=== PATIENT | female | born 1965 | race Native Hawaiian/Other Pacific Islander ===

== ENCOUNTER 2018-10-01 19:08 | Emergency (ER) | payer SELFPAY ==
[2018-10-01 19:21] VITALS: RESP 18; O2SAT 99
[2018-10-01] MEDS ORDERED: Tdap Vaccine 0.5 ml Vial (10-64 yrs) IM ONE ×2 (19:30→19:39)
[2018-10-01] MEDS ORDERED: Bacitracin 500 Units/gm Oint Foilpak UD ONE (19:30)
--- NOTE | 2018-10-01 19:51 | ED PDOC ---
Upper Extremity Pain/Injury Time Seen by Provider: 10/01/18 19:17 Chief Complaint (Nursing): Upper Extremity Problem/Injury History Per: Patient Additional Complaint(s): Pt. states yesterday at approximately 1900 yesterday she accidentally cut her L thumb using knife. Pt. states she's had a throbbing pain to the area since. Denies numbness, tingling. Tetanus status is unknown. Past Medical History Reviewed: Historical Data, Nursing Documentation, Vital Signs Vital Signs: Last Vital Signs Temp 98.6 F 10/01/18 19:19 Pulse 88 10/01/18 19:19 Resp 18 10/01/18 19:19 BP 131/87 10/01/18 19:19 Pulse Ox 99 10/01/18 19:19 Primary Care Provider: Non [facility] Provider, - Surgical History Surgical History: Cholecystectomy - Family History Family History: States: No Known Family Hx - Immunization History Hx Tetanus Toxoid Vaccination: No Hx Influenza Vaccination: No Hx Pneumococcal Vaccination: No - Allergies Allergies/Adverse Reactions: Allergies Allergy/AdvReac Type Severity Reaction Status Date / Time latex Allergy RASH Verified 10/01/18 19:21 shellfish derived Allergy ANAPHYLAXIS Verified 10/01/18 19:21 Review of Systems ROS Statement: Except As Marked, All Systems Reviewed And Found Negative Physical Exam - Physical Exam Appears: Positive for: Well, Non-toxic, No Acute Distress Skin: Positive for: Normal Color, Warm. Negative for: Rash Eye Exam: Positive for: Normal appearance Extremity: Positive for: Other (L thumb with 1cm linear very superficial laceration going over the IP joint without active bleeding, swelling, erythema, or discharge; FROM actively of L thumb) Neurological/Psych: Positive for: Awake, Alert, Oriented (x3). Negative for: Motor/Sensory Deficits - ECG O2 Sat by Pulse Oximetry: 99 - Progress ED Course And Treament: Wound irrigated heavily with NS. Bacitracin ointment applied. DSD applied over wound. Finger immobilized in aluminum finger splint applied by PA. Tetanus prophylaxis administered. Pt. given wound care instructions. Disposition - Clinical Impression Clinical Impression: Thumb injury - Patient ED Disposition Is Patient to be Admitted: No - Disposition Referrals: [facility]io Dent [Outside] Disposition: Routine/Home Disposition Time: 19:30 Condition: STABLE Additional Instructions: [facility], thank you for letting us take care of you today. Your provider was Jessee Bradshaw MD and you were treated for LEFT THUMB INJURY. The emergency medical care you received today was directed at your acute symptoms. If you were prescribed any medication, please fill it and take as directed. It may take several days for your symptoms to resolve. Return to the Emergency Department if your symptoms worsen, do not improve, or if you have any other problems. Please contact your doctor or call one of the physicians/clinics you have been referred to that are listed on the Patient Visit Information form that is included in your discharge packet. Bring any paperwork you were given at discharge with you along with any medications you are taking to your follow up visit. Our treatment cannot replace ongoing medical care by a primary care provider outside of the emergency department. Thank you for allowing the [facility] team to be part of your care today. If you had an X-Ray or CT scan: A Radiologist will review the ED reading if any change in treatment is needed we will contact you. If you had a blood, urine, or wound culture: It will take several days for the results, if any change in treatment is needed we will contact you. If you had an STI test: It will take 48 hours for the results. Please call after 1 week if you have not heard back. Instructions: Wound Care (DC) Forms: [employer] (Bengali) Print Language: VINCENTIAN
[2018-10-01 19:58] VITALS: BP 139/79; PULSE 78; TEMP 98.2
== END 2018-10-01 19:40 | disposition home or self-care (01) ==
LOC: H.ER 19:08
DX: S61.012A Laceration without foreign body of left thumb without damage to nail, initial encounter (principal); W26.0XXA Contact with knife, initial encounter; Z23 Encounter for immunization